=== PATIENT | female | born 1955 | race Caucasian/White ===

== ENCOUNTER → 2020-12-06 | Outpatient (CLI) | payer OTHER | LOC: DTC 14:57 | DX: E66.9 Obesity, unspecified (principal); Z68.41 Body mass index [BMI] 40.0-44.9, adult ==

== ENCOUNTER → 2021-04-04 | Outpatient (CLI) | payer OTHER | LOC: KOH-I 14:56 | DX: M79.606 Pain in leg, unspecified (principal); M17.11 Unilateral primary osteoarthritis, right knee | CPT/HCPCS: 73562 ==

== ENCOUNTER → 2021-04-25 | Outpatient (CLI) | payer OTHER | LOC: KOH-I 08:00 | DX: M25.561 Pain in right knee (principal); M17.11 Unilateral primary osteoarthritis, right knee; M23.311 Other meniscus derangements, anterior horn of medial meniscus, right knee | CPT/HCPCS: 73721 ==

== ENCOUNTER → 2021-10-17 | Outpatient (CLI) | payer OTHER ==
[~2021-10-17] MED LIST: ARIMIDEX1 MG PO; CALCIUM 600 +1 EAC3 PO; MELOXICAM15 MG PO
[2021-10-17 09:05] LABS: HEMOGLOBIN 13.9 gm/dl (12.3-15.3); RED BLOOD COUNT 4.49 M/UL (4.00-5.10)
[2021-10-17 09:19] LABS: BUN/CREATININE RATIO 17 (0-10)
== END ==
LOC: EDSTATUS 08:00 → OPSV2 08:00
PROVIDERS: Orthopaedic Surgery
DX: Z01.818 Encounter for other preprocedural examination (principal); M17.12 Unilateral primary osteoarthritis, left knee
CPT/HCPCS: 36415; 80048; 85025; 93005

== ENCOUNTER → 2021-10-29 | Outpatient (CLI) | payer MEDICARE, OTHER ==
[~2021-10-29] MED LIST changes: +ASPIRIN CHEWABL81 MG PO; +ELIQUIS2.5 MG PO; +HYDROCODON-ACE1 EAC6 PO
[2021-10-29 10:30] LABS: BUN/CREATININE RATIO 21 (0-10)
== END ==
LOC: LAB 09:25
PROVIDERS: Orthopaedic Surgery
DX: Z01.812 Encounter for preprocedural laboratory examination (principal)
CPT/HCPCS: 36415; 80048; 86850; 86900; 86901

== ENCOUNTER 2021-10-30 06:10 | Day surgery (SDC) | payer MEDICARE, OTHER ==
[~2021-10-30] VITALS: Ht 165.1 cm; Wt 119.3 kg
[~2021-10-30 06:10] MED LIST changes: -ASPIRIN CHEWABL81 MG PO; -ELIQUIS2.5 MG PO; -HYDROCODON-ACE1 EAC6 PO
[2021-10-31] MEDS ORDERED: HYDROCODON-ACE1 EAC6 PO (06:58)
[2021-10-31] MEDS ORDERED: ASPIRIN CHEWABL81 MG PO (06:58)
[2021-10-31 10:19] LABS: HEMOGLOBIN 12.3 gm/dl (12.3-15.3); RED BLOOD COUNT 3.99 M/UL (4.00-5.10); WHITE BLOOD COUNT 12.8 K/UL (4.5-11.0)
[2021-10-31 11:10] LABS: BUN/CREATININE RATIO 26 (0-10)
[2021-10-31] MEDS ORDERED: ELIQUIS2.5 MG PO (12:48)
== END 2021-10-31 14:34 | disposition home or self-care (01) ==
LOC: OR 06:10 → EDSTATUS 07:30 → OR 07:30 → M/S 14:56 → ZOBSOF 15:48 → M/S 15:48 → OR 10-31 14:34
PROVIDERS: Nurse Practitioner Family
DX: M17.12 Unilateral primary osteoarthritis, left knee (principal); F17.200 Nicotine dependence, unspecified, uncomplicated; E66.01 Morbid (severe) obesity due to excess calories; Z68.41 Body mass index [BMI] 40.0-44.9, adult; Z85.3 Personal history of malignant neoplasm of breast; Z90.12 Acquired absence of left breast and nipple; Z88.1 Allergy status to other antibiotic agents; Z79.1 Long term (current) use of non-steroidal anti-inflammatories (NSAID); Z79.899 Other long term (current) drug therapy
CPT/HCPCS: 36415; 73560; 76000; 80048; 85027; 97110; 97110-GP-CQ; 97116-GP-CQ; 97162; 97166; 97535; C1776; J0690; J1100; J1885; J2001; J2250; J2370; J2704; J2795; J7120

== ENCOUNTER → 2021-12-11 | Outpatient (CLI) | payer MEDICARE, OTHER ==
[~2021-12-11] MED LIST changes: +ASPIRIN CHEWABL81 MG PO; +ELIQUIS2.5 MG PO; +HYDROCODON-ACE1 EAC6 PO
== END ==
LOC: NM 12-04 09:30
DX: C50.812 Malignant neoplasm of overlapping sites of left female breast (principal); B00.2 Herpesviral gingivostomatitis and pharyngotonsillitis; K12.31 Oral mucositis (ulcerative) due to antineoplastic therapy; R11.0 Nausea
CPT/HCPCS: 71260; 78306; A9503; Q9967

== ENCOUNTER 2022-01-19 11:31 | Emergency (ER) | payer MEDICARE, OTHER ==
[2022-01-19 12:26] LABS: HEMOGLOBIN 14.7 gm/dl (12.3-15.3); RED BLOOD COUNT 4.78 M/UL (4.00-5.10); WHITE BLOOD COUNT 9.8 K/UL (4.5-11.0)
[2022-01-19 12:52] LABS: BUN/CREATININE RATIO 17 (0-10)
[2022-01-19] MEDS ORDERED: OMNICEF 300 MG300 MG PO (15:04)
[2022-01-19] MEDS ORDERED: FLOMAX0.4 MG PO (15:05)
[2022-01-19] MEDS ORDERED: HYDROCODON-ACE1 EAC4 PO (15:05)
== END 2022-01-19 15:35 | disposition home or self-care (01) ==
LOC: ER1 11:31
PROVIDERS: Emergency Medicine
DX: N13.2 Hydronephrosis with renal and ureteral calculous obstruction (principal); I10 Essential (primary) hypertension
CPT/HCPCS: 80053; 81001; 82550; 82553; 83605; 83690; 84484; 85025; 87040; 87086; 93005; 96374; 96375; 99284; J0696; J1170; J1885; J2270; J2405; Q9967

== ENCOUNTER → 2022-03-21 | Outpatient (CLI) | payer MEDICARE, OTHER ==
[~2022-03-21] MED LIST changes: +FLOMAX0.4 MG PO; +HYDROCODON-ACE1 EAC4 PO; +OMNICEF 300 MG300 MG PO
== END ==
LOC: US 09:50
DX: N13.39 Other hydronephrosis (principal)